=== PATIENT | male | born 1960 | race Caucasian/White ===

== ENCOUNTER 2022-06-25 04:17 | Day surgery (SDC) | payer OTHER ==
[2022-06-20 11:59] VITALS: BMI 28.1
[2022-06-25 09:29] VITALS: TEMP 97.6
[2022-06-25 09:32] VITALS: BP 114/51; PULSE 60; RESP 13
== END 2022-06-25 09:40 | disposition home or self-care (01) ==
LOC: JASU-ENDO 04:17
PROVIDERS: ATTEND Student in an Organized Health Care Education/Training Program
PROC: 0DBK8ZX Excision of Ascending Colon, Via Natural or Artificial Opening Endoscopic, Diagnostic (ICD-10-PCS; 2022-06-25)
PROC: 0DBL8ZX Excision of Transverse Colon, Via Natural or Artificial Opening Endoscopic, Diagnostic (ICD-10-PCS; principal; 2022-06-25 08:30)
DX: D12.2 Benign neoplasm of ascending colon (principal); D12.3 Benign neoplasm of transverse colon; K55.20 Angiodysplasia of colon without hemorrhage; K57.30 Diverticulosis of large intestine without perforation or abscess without bleeding; K64.8 Other hemorrhoids
CPT/HCPCS: 88305-TC